=== PATIENT | male | born 1960 | race Caucasian/White ===

== ENCOUNTER 2017-08-06 18:00 | Emergency (ER) | payer OTHER ==
[2017-08-06 18:01] VITALS: BMI 20.6
[2017-08-06 18:08] VITALS: BP 154/84; PULSE 81; RESP 18; TEMP 97.2; O2SAT 100
--- NOTE | 2017-08-06 19:39 | C.PDOC ---
History Of Present Illness 56 year old male presents to the ED with complaints of nasal congestion with post nasal drip since last night. Patient denies shortness of breath, cough, fever, chills, nausea, vomiting, sick contacts, or recent travel. Time Seen by Provider: 08/06/17 19:14 Chief Complaint (Nursing): Cough, Cold, Congestion History Per: Patient History/Exam Limitations: no limitations Onset/Duration Of Symptoms: Days (1 day ) Current Symptoms Are (Timing): Still Present Sick Contacts (Context): None Associated Symptoms: Nasal Congestion. denies: Fever, Chills, Nausea, Vomiting Ear Symptoms: Bilateral: None Recent travel outside of the [place]: No Past Medical History Reviewed: Historical Data, Nursing Documentation, Vital Signs Vital Signs: Last Vital Signs Temp 97.2 F L 08/06/17 18:10 Pulse 81 08/06/17 18:10 Resp 18 08/06/17 18:10 BP 154/84 H 08/06/17 18:10 Pulse Ox 100 08/06/17 21:17 - Medical History PMH: Diabetes, HTN, Hypercholesterolemia Family History: States: Unknown Family Hx Denies: CO, CAD - Social History Hx Tobacco Use: No Hx Alcohol Use: No Hx Substance Use: No - Immunization History Hx Tetanus Toxoid Vaccination: No Hx Influenza Vaccination: No Hx Pneumococcal Vaccination: No Review Of Systems Constitutional: Negative for: Fever, Chills ENT: Positive for: Nose Congestion, Other (post nasal drip) Cardiovascular: Negative for: Chest Pain, Palpitations Respiratory: Negative for: Cough, Shortness of Breath Gastrointestinal: Negative for: Nausea, Vomiting Musculoskeletal: Negative for: Neck Pain Physical Exam - Physical Exam Appears: Non-toxic, No Acute Distress Skin: Warm, Dry Head: Atraumatic, Normacephalic Eye(s): bilateral: Normal Inspection, PERRL, EOMI Ear(s): Bilateral: Normal Nose: No Tenderness, Other (enlarged nasal turbinates ) Oral Mucosa: Moist Throat: Normal, No Erythema, No Exudate Neck: Normal ROM, Supple Lymphatic: No Adenopathy Chest: Symmetrical, No Deformity Cardiovascular: Rhythm Regular, No Murmur Respiratory: Normal Breath Sounds, No Rales, No Rhonchi, No Wheezing Neurological/Psych: Oriented x3 ED Course And Treatment O2 Sat by Pulse Oximetry: 100 (RA) Disposition Counseled Patient/Family Regarding: Diagnosis, Need For Followup, Rx Given - Disposition Referrals: Krista Levy MD [Staff Provider] - Disposition: HOME/ ROUTINE Disposition Time: 19:36 Condition: STABLE Additional Instructions: Please follow up with PMD Take meds as directed Return to ER if worse Prescriptions: Cetirizine HCl [Zyrtec] 10 mg PO DAILY #20 capsule Mometasone Furoate [Nasonex] 2 spray NS DAILY #1 bottle Instructions: Allergic Rhinitis (ED) Forms: [employer] (Yi) Print Language: KYRGYZ - Clinical Impression Clinical Impression: Nasal congestion - PA / CHILDREN[employer]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 - Scribe Statement The provider has reviewed the documentation as recorded by the Scribeli Anne All medical record entries made by the Abhijeetibeli were at my direction and personally dictated by me. I have reviewed the chart and agree that the record accurately reflects my personal performance of the history, physical exam, medical decision making, and the department course for this patient. I have also personally directed, reviewed, and agree with the discharge instructions and disposition.
== END 2017-08-06 19:46 | disposition home or self-care (01) ==
LOC: C.ER 18:00
DX: R09.81 Nasal congestion (principal)